=== PATIENT | female | born 1975 | race Caucasian/White ===

== ENCOUNTER 2019-05-02 07:11 | Day surgery (SDC) | payer BC ==
[2019-05-02] MEDS ORDERED: LIDOCAINE 2% (SDV) 5 ML INJ (09:14)
[2019-05-02] MEDS ORDERED: PROPOFOL 60 ML (09:14)
== END 2019-05-02 14:25 | disposition home or self-care (01) ==
LOC: GIL 07:11
DX: R19.4 Change in bowel habit (principal); K64.8 Other hemorrhoids; K29.50 Unspecified chronic gastritis without bleeding
CPT/HCPCS: 43239; 84703; 88305; 88312